=== PATIENT | male | born 1950 | race Two or more races ===

== ENCOUNTER 2020-04-09 22:41 | Emergency (ER) | payer MEDICARE, OTHER ==
[~2020-04-09] VITALS: Ht 170.2 cm; Wt 70.5 kg
[2020-04-10] MEDS ORDERED: LORazepam 2 MG/ML VIAL IM ONE (00:45)
[2020-04-10] MEDS ORDERED: HALOPERIDOL LACTATE 5 MG/ML VIAL IM ONE (00:45)
[2020-04-10 10:30] VITALS: BP 122/70
== END 2020-04-10 10:48 | disposition home or self-care (01) ==
LOC: EMS 22:46
DX: F03.90 Unspecified dementia, unspecified severity, without behavioral disturbance, psychotic disturbance, mood disturbance, and anxiety (principal)
CPT/HCPCS: 96372; 99291; J1630; J2060